=== PATIENT | female | born 1990 | race Native Hawaiian/Other Pacific Islander ===

== ENCOUNTER 2017-09-13 23:06 | Emergency (ER) | payer MEDICAID ==
[~2017-09-13] VITALS: Ht 165.1 cm; Wt 84.4 kg
[2017-09-13 23:17] VITALS: Ht 165.1 cm; Wt 84.4 kg
[2017-09-14 03:17] VITALS: BP 125/86
== END 2017-09-14 03:17 | disposition home or self-care (01) ==
LOC: ED 23:06
DX: O99.612 Diseases of the digestive system complicating pregnancy, second trimester (principal); Z3A.19 19 weeks gestation of pregnancy
CPT/HCPCS: Q0092